=== PATIENT | female | born 1985 | race Caucasian/White ===

== ENCOUNTER 2021-03-20 20:42 | Emergency (ER) | payer OTHER, BC, SELFPAY ==
[2021-03-20 20:49] VITALS: BP 142/89; PULSE 64; RESP 16; TEMP 35.9; O2SAT 100
--- NOTE | 2021-03-20 21:18 | ED.WOUNDLAC ---
HPI - Wound/Laceration General Chief Complaint: Wound/Laceration Stated Complaint: L HAND SCRATCH, WORK COMP Time Seen by Provider: 03/20/21 21:08 Source: patient and RN notes reviewed Mode of arrival: ambulatory Limitations: no limitations History of Present Illness HPI narrative: This is a 35 year old female left hand dominant who presents for evaluation of left hand scratch. She works with clinical research nurse. She accidentally scratched her left hand on drill bit that had been use on an animal. She was told to come to ER for evaluation. She has mild pain at location of scratch. It is superficial and bleeding is under control. She has history of adrenal insufficiency. She denies numbness, tingling or weakness. She is up to date on her tetanus. Related Data Home Medications Medication Instructions Recorded Confirmed ergocalciferol (vitamin D2) 03/20/21 03/20/21 fluticasone propionate INTRANASAL 03/20/21 hydrocortisone 03/20/21 Allergies Allergy/AdvReac Type Severity Reaction Status Date / Time No Known Allergies Allergy Unverified 12/10/17 11:52 Review of Systems Review of Systems: All systems reviewed & are unremarkable except as noted in HPI and below PMFSH Past Medical History Medical History (Updated 03/20/21 @ 21:24 by Rhea Cisneros MD) Adrenal insufficiency Surgical History Surgical History (Updated 03/20/21 @ 21:21 by Rhea Cisneros MD) H/O microdiscectomy Social History Social History (Updated 03/20/21 @ 21:22 by Rhea Cisneros MD) Smoking status: Never smoker Exam Const: General: no acute distress and alert Orientation/consciousness: patient oriented x3 HENMT: Head: normocephalic and atraumatic Face and sinus: face symmetric Eyes: EOM: EOMs intact bilaterally Resp: Effort & Inspection: normal respiratory effort Neuro: General: patient oriented x3, moves all extremities and CN's II-XI intact bilaterally Extrem: Other: left hand with small superficial laceration to left ulnar side of palm, approximately 1 cm. clean, no bleeding, no erythema, no swelling Psych: Mental Status: mental status grossly normal Affect: normal affect Course Reevaluation(s) Reevaluation #1: PAtient will be placed on antibiotics given dirty drill bit used on animals and adrenal insufficiency Date: 03/20/21 Time: 21:23 Vital Signs Vital signs: Vital Signs Temperature 96.6 F L 03/20/21 20:49 Pulse Rate 64 03/20/21 20:49 Respiratory Rate 16 03/20/21 20:49 Blood Pressure 142/89 H 03/20/21 20:49 Pulse Oximetry 100 03/20/21 20:49 Temperature 96.6 F L 03/20/21 20:49 Pulse Rate 64 03/20/21 20:49 Respiratory Rate 16 03/20/21 20:49 Blood Pressure 142/89 H 03/20/21 20:49 Pulse Oximetry 100 03/20/21 20:49 Discharge Plan Discharge Clinical Impression: Laceration of hand, left Qualifiers: Encounter type: initial encounter Foreign body presence: without foreign body Qualified Code(s): S61.412A - Laceration without foreign body of left hand, initial encounter Patient Disposition: Home, Self-Care Condition: Stable Instructions: Antibiotic Form, Laceration (ED), Acute Wounds (ED) Additional Instructions: Take antibiotics as prescribed. Clean your wound thoroughly at home. Keep clean and dry. Watch for signs of infection. Prescriptions: New amoxicillin-pot clavulanate [Augmentin] 875-125 mg tablet 1 tablet PO Q12H Qty: 14 RF: 0 No Action ergocalciferol (vitamin D2) 1,250 mcg (50,000 unit) capsule RF: 0 hydrocortisone 10 mg tablet RF: 0 fluticasone propionate 50 mcg/actuation spray,suspension INTRANASAL RF: 0 Follow-up/Referrals: PHYSICIAN NOT ON STAFF,NONSTAFF [Primary Care Provider] -
[2021-03-20] MEDS: AMOXICILLIN/CLAVULANATE K 875-125 MG TAB 1 TABLET PO (21:19)
== END 2021-03-20 22:35 | disposition home or self-care (01) ==
PROVIDERS: Emergency Provider General Practice
DX: S61.412A Laceration without foreign body of left hand, initial encounter (principal); E27.40 Unspecified adrenocortical insufficiency; W29.8XXA Contact with other powered hand tools and household machinery, initial encounter; Y93.K9 Activity, other involving animal care
CPT/HCPCS: 99283; A9270